=== PATIENT | female | born 2000 | race Two or more races ===

== ENCOUNTER 2025-02-07 07:48 | Emergency (ER) | payer OTHER ==
[~2025-02-07] VITALS: Ht 152.4 cm; Wt 99.8 kg
[2025-02-07] MEDS ORDERED: NEURONTIN300 MG PO (09:04)
[2025-02-07] MEDS ORDERED: NORFLEX100MG PO (09:04)
[2025-02-07] MEDS ORDERED: ORPHENADRINE CITRATE 30 MG/ML AMPUL ONE (09:05)
[2025-02-07] MEDS ORDERED: KETOROLAC TROMETHAMINE 60 MG VIAL IM ONE ×2 (09:06→09:15)
[2025-02-07] MEDS ORDERED: ORPHENADRINE CITRATE 30 MG/ML AMPUL IV ONE (09:15)
== END 2025-02-07 09:26 | disposition home or self-care (01) ==
LOC: ER 07:49
DX: M54.50 Low back pain, unspecified (principal); Z91.013 Allergy to seafood